=== PATIENT | male | born 1955 | race Two or more races ===

== ENCOUNTER 2023-12-03 22:29 | Emergency (ER) | payer OTHER ==
[~2023-12-03] VITALS: Ht 165.1 cm; Wt 84.5 kg
[~2023-12-03 22:29] MED LIST: LISI20TA56 PO; MELO7.5T7 PO
[2023-12-03 23:30] LABS: Urine Bacteria None Seen /hpf (None Seen)
[2023-12-03 23:43] LABS: Urine Blood Negative /uL (Negative); Urine Clarity Clear (Clear); Urine Color Light-Yellow (Yellow); Urine Mucus FEW (None Seen); Urine Protein, UAD Negative (Negative); Urine Specific Gravity 1.015 (1.001-1.035); Urine Urobilinogen Normal (Negative); Urine WBC <1 /hpf (0 - 3)
[2023-12-04 03:20] LABS: Basophils # (auto) 0.1 10 ^3/uL (0-0.2); Basophils % (auto) 1.1 % (0.0-2.0); Eosinophils # (auto) 0.5 10 ^3/uL (0-0.8); Eosinophils % (auto) 4.2 % (0.0-7.0); Hemoglobin 16.4 g/dL (13.5-17.5); Lymphocytes # (auto) 3.1 10 ^3/uL (0.4-5.4); Lymphocytes % (auto) 27.5 % (10.0-50.0); Mean Corpuscular Hgb Conc. 34.9 g/dL (32.0-36.0); Mean Corpuscular Volume 94.7 fL (80.0-100.0); Monocytes # (auto) 0.8 10 ^3/uL (0-1.3); Monocytes % (auto) 7.2 % (0.0-12.0); Neutrophils # (auto) 6.8 10 ^3/uL (1.6-8.6); Nucleated Red Blood Cells % 0.1 %; Red Blood Cells 4.96 10^6/uL (4.5-5.90); Red Cell Distribution Width 13.4 % (11.8-14.3); White Blood Cell 11.4 10^3/uL (4.4-10.8)
[2023-12-04 03:35] LABS: Alanine Aminotransferase 13 U/L (7-40); Albumin 4.5 g/dL (3.2-4.8); Alkaline Phosphatase 123 U/L (46-116); Anion Gap 3 (5-15); Aspartate Aminotransferase 9 U/L (13-40); BUN/Creatinine Ratio 11.1 (10.0-20.0); Blood Urea Nitrogen 11 mg/dL (9-23); Calcium 10.1 mg/dL (8.7-10.4); Carbon Dioxide 27 mmol/L (20-30); Chloride 108 mmol/L (98-107); Glucose 116 mg/dL (74-106); Lipase 208 U/L (12-53); Potassium 4.1 mmol/L (3.5-5.1); Sodium 138 mmol/L (136-145)
[2023-12-04 03:36] LABS: Bilirubin, Total 0.4 mg/dL (0.2-1.0); Total Protein 7.5 g/dL (5.7-8.2)
[2023-12-04 03:39] VITALS: BP 209/103; PULSE 68; RESP 16; TEMP 98.7; O2SAT 96
== END 2023-12-04 04:06 | disposition home or self-care (01) ==
LOC: ER 22:29
DX: K85.90 Acute pancreatitis without necrosis or infection, unspecified (principal); E78.5 Hyperlipidemia, unspecified; I10 Essential (primary) hypertension
CPT/HCPCS: 36415; 80053; 81001; 83690; 85025; 93005